=== PATIENT | female | born 1960 | race Caucasian/White ===

== ENCOUNTER 2018-03-19 06:33 | Day surgery (SDC) | payer BC ==
[2018-03-19] MEDS ORDERED: Lactated Ringers 1,000 ML IV SCH (07:00)
[2018-03-19] MEDS ORDERED: Propofol 200 MG/20 ML SDV ONE ×2 (07:26→08:02)
[2018-03-19] MEDS ORDERED: fentaNYL 100 MCG/2 ML SDV ONE (07:26)
[2018-03-19] MEDS ORDERED: Midazolam 1 MG/ML 2 ML SDV ONE (07:26)
[2018-03-19] MEDS ORDERED: Atropine 0.4 MG/ML SDV ONE (07:54)
--- NOTE | 2018-03-19 10:29 | OR ---
DATE OF PROCEDURE: 03/19/2018 PREOPERATIVE DIAGNOSIS: Colon cancer screening. POSTOPERATIVE DIAGNOSIS: Small colon polyp, 70 cm from anal verge. PROCEDURE PERFORMED: Colonoscopy to the cecum with biopsy resection of small polyp 70 cm from the anal verge. SURGEON: Suhail St MD. ANESTHESIA: IV anesthesia with monitored anesthesia care. INDICATION: This 57-year-old white female is referred for a colonoscopy for colon cancer screening. She has never had a colonoscopic exam. I counseled her for the procedure including risks, alternatives and she gave her informed consent to proceed. DESCRIPTION OF PROCEDURE: The patient was placed in the left lateral decubitus position. IV anesthesia was administered by the Anesthesia Service. Time-out was held. A rectal exam was performed, which was unremarkable. The flexible video Olympus colonoscope was introduced through her anus, up her rectum and out her colon all the way to the cecum. Once the cecum was reached, the scope was slowly withdrawn examining the mucosa throughout. No mucosal abnormalities were noted until we reached about 70 cm from the anal verge. Here, a small polyp was seen which was removed with a couple bites of the biopsy forceps. The scope was withdrawn further with no other lesions noted. The scope was retroflexed in the rectum with the distal rectum appearing unremarkable. The scope was straightened and removed. She tolerated the procedure well. Suhail St MD /[id number] MTDD
== END 2018-03-19 09:10 | disposition home or self-care (01) ==
LOC: JP.SDS 06:33
PROVIDERS: ATTEND Surgery
DX: Z12.11 Encounter for screening for malignant neoplasm of colon (principal); D12.4 Benign neoplasm of descending colon
CPT/HCPCS: 45380; 88305; J0461; J2250; J2704; J3010; J7120

== ENCOUNTER 2021-05-02 08:11 | Day surgery (SDC) | payer BC ==
[2021-05-02] MEDS ORDERED: fentaNYL 100 MCG/2 ML SDV ONE (08:29)
[2021-05-02] MEDS ORDERED: Propofol 200 MG/20 ML SDV ONE (08:29)
[2021-05-02] MEDS ORDERED: Midazolam 1 MG/ML 2 ML SDV ONE (08:29)
[2021-05-02] MEDS ORDERED: Sodium Chloride 0.9% 1,000 ML IV SCH (09:15)
[2021-05-02] MEDS ORDERED: Atropine 0.4 MG/ML SDV ONE (10:08)
[2021-05-02] MEDS ORDERED: Dexamethasone 4 MG/ML SDV ONE (10:09)
[2021-05-02] MEDS ORDERED: Ondansetron 4 MG/2 ML SDV ONE (10:09)
--- NOTE | 2021-05-02 14:18 | OR ---
DATE OF PROCEDURE: 05/02/2021 SURGEON: Darwin Lang MD PROCEDURE: Colonoscopy. FINDINGS: Normal colonoscopy. PREOPERATIVE DIAGNOSIS: Screening colonoscopy/history of colon polyps. POSTOPERATIVE DIAGNOSIS: Screening colonoscopy/history of colon polyps. RISKS: Risks, benefits, alternatives, and limitations including, but not limited to infection, bleeding, perforation, false positives, false negatives were explained to the patient and she wished to proceed. PROCEDURE IN DETAIL: The patient was placed in left lateral decubitus position. Digital rectal exam was performed without abnormality. Scope was introduced and advanced atraumatically to the ileocecal valve. A photo was taken of this. Scope was brought back to the ascending, transverse, descending colon, and retroflexed. No evidence of old or new blood. No masses. No polyps. No diverticulosis. No abnormalities on retroflexion. Greater than 8 minutes was spent removing the scope. The patient tolerated the procedure well. Darwin Lang MD /[id number]
== END 2021-05-02 11:20 | disposition home or self-care (01) ==
LOC: JP.SDS 08:11
PROVIDERS: ATTEND Surgery
DX: Z12.11 Encounter for screening for malignant neoplasm of colon (principal); Z86.010 Personal history of colon polyps
CPT/HCPCS: 45378; J0461; J1100; J2250; J2405; J2704; J3010; J7030